=== PATIENT | male | born 1985 | race Hispanic/Latino ===

== ENCOUNTER 2017-06-28 09:45 | Inpatient (IN) | payer SELFPAY ==
[2017-06-28] MEDS ORDERED: HYDROmorphone 0.5 MG/0.5 ML SYRINGE ONE ×2 (09:53→10:06)
[2017-06-28 10:02] LABS: #Basophils 0.1 thou/uL (0.0-0.2); #Eosinphils 0.1 thou/uL (0.0-0.7); #Lymphocytes 3.6 thou/uL (1.20-3.40); #Monocytes 0.9 thou/uL (0.11-0.59); #Neutrophils 6.7 thou/uL (1.40-6.50); %Basophils 0.9 % (0.0-1.0); %Eosinophils 0.5 % (0.0-10.0); %Lymphocytes 31.4 % (21.0-51.0); %Monocytes 7.9 % (0.0-10.0); %Neutrophils 59.3 % (42.0-75.0); Hemoglobin 16.3 g/dL (14.0-18.0); Mean Corpuscular HGB CONC 33.7 g/dL (32.0-36.0); Mean Corpuscular Hemoglobin 29.7 pg (27.0-31.0); Mean Corpuscular Volume 88.2 fl (80.0-94.0); Platelet Count 377 thou/uL (130-400); RBC Distribution Width 11.9 % (11.5-14.5); Red Blood Cell (RBC) Count 5.47 mill/uL (4.70-6.10); White Blood Cell (WBC) Count 11.3 thou/uL (4.8-10.8)
[2017-06-28 10:10] LABS: Prothrombin Time 13.6 SEC (12.0-14.7)
[2017-06-28 10:11] LABS: PTT 22.8 SEC (22.9-36.1)
[2017-06-28 10:26] LABS: ALT (SGPT) 28 U/L (8-55); AST (SGOT) 36 U/L (5-34); Albumin 4.8 g/dL (3.5-5.0); Alkaline Phosphatase 69 U/L (40-150); Anion Gap 17 mmol/L (10-20); BUN (Urea Nitrogen) 19 mg/dL (8.9-20.6); Bilirubin, Total 0.9 mg/dL (0.2-1.2); Calc. Creatinine Clearance 0 mL/min (70-130); Calcium 9.8 mg/dL (7.8-10.44); Carbon Dioxide 19 mmol/L (22-29); Chloride 103 mmol/L (98-107); Estimated GFR-MDRD 84; Glucose 138 mg/dL (70-105); Lipase 19 U/L (8-78); Potassium 3.6 mmol/L (3.5-5.1); Protein, Total 7.8 g/dL (6.0-8.3); Sodium 135 mmol/L (136-145)
--- NOTE | 2017-06-28 10:46 | CT ---
CT CERVICAL SPINE NONCONTRAST: HISTORY: 32-year-old male status acute cervical trauma from fall from roof, 10 feet. FINDINGS: There are no jumped or perched facets. There is no evidence of acute fracture. The vertebral body h eights are maintained. There is no prevertebral soft tissue swelling. IMPRESSION: No evidence of acute fracture or acute traumatic subluxation. mirna POS: [facility]
--- NOTE | 2017-06-28 10:48 | CT ---
NONCONTRAST HEAD CT: History: Patient fell off a roof from the height of 10 feet. Post-traumatic pain. Comparison: None. Technique: A noncontrast head CT is performed from skull base to skull vertex. FINDINGS: No parenchymal hemorrhage. No extraaxial hematoma. No midline shift. Basilar cisterns are patent. Brain volume is age appropriate. Cortical cobb white matter differentiation is preserved. Ventricles and sulci are patent and symmetric. There appears to be chronic thinning or chronic change of the right temporal bone. No acute fractures . Adequate aeration of the sinuses and mastoid air cells. IMPRESSION: No acute intracranial process. Chronic change along the right temporal bone. Chronic thinning versus post-surgical change in the right temporal bone. POS: [facility]
--- NOTE | 2017-06-28 11:14 | CT ---
CT THORAX WITH CONTRAST CT ABDOMEN WITH CONTRAST CT PELVIS WITH CONTRAST: (trauma protocol) HISTORY: 32-year-old male status post acute thoracic, abdominal, and pelvic trauma due to fall of [address] Gomes reported the findings of the CTs of the brain, cervical spine, chest, abdomen, and pelvis to Dr. Cash of the Emergency Department at 10:35 a.m. on 06-28-17, for this level II trauma case. TECHNIQUE: IV administration of iodinated contrast media. No oral contrast media. Single phase scans of thorax, abdomen, and pelvis. Sagittal reconstructions of thoracic and lumbar spine. FINDINGS: Thoracic and lumbar spine: No compression fracture. Thorax: Breathing motion artifact makes it difficult to evaluate for sternal fracture. Lungs are clear. No pl eural effusion or pneumothorax. No thoracic aortic dissection, rupture, or aneurysm. No mediastinal h ematoma or lymphadenopathy. No grossly displaced rib fracture identified. No grossly displaced clavic ular or scapular fracture identified. Abdomen: No evidence of acute injury to the abdominal aorta, bilateral kidneys, pancreas, adrenals, spleen, or liver. Images are degraded by patient breathing motion artifact. No free fluid identified. No retrop eritoneal hematoma. No small bowel dilation. No gross acute findings of the colon. Pelvis: No free fluid within the pelvic cavity. Normal appendix. There is no fracture or dislocation of the p lan. However, there is a significantly displaced comminuted fracture of the right proximal femoral diaphysis, incompletely imaged, involving subtrochanteric and intertrochanteric regions. IMPRESSION: 1. Significantly displaced, acute, traumatic, comminuted, closed fracture of intertrochanteric a nd subtrochanteric right femur. 2. No evidence of acute injury within the thoracic, abdominal, or pelvic cavities. NICCI Mix POS: [facility]
--- NOTE | 2017-06-28 11:16 | RAD ---
RADIOGRAPH RIGHT FEMUR 2 VIEWS: Date: 06/28/17 Time: 1034 hours HISTORY: 32-year-old male status post acute trauma to the right femur due to 10-ft fall from roof. FINDINGS: There is a comminuted fracture of the proximal femur beginning at the intertrochanteric region, and e xtending to involve the subtrochanteric, proximal femoral diaphysis. There is comminution. The main d istal fragment (the majority of the femoral diaphysis) is significantly rotated laterally (counterclo ckwise from an inferior to superior viewpoint) relative to the main proximal fragment. The main dista l fragment is also significantly displaced anteriorly and angulated medially relative to the proximal fragment (lateral angulation of fracture apex). There is overlap of fracture fragments. The mid and distal portions of the femoral diaphysis, and the femoral condyles, appear to be intact. IMPRESSION: Acute, traumatic, comminuted, closed, displaced, and angulated fracture of the right proximal femur i nvolving intertrochanteric region and proximal shaft. POS: [facility]
[2017-06-28 11:26] LABS: Bilirubin Negative (Negative); Blood, Urine Negative (Negative); Clarity CLEAR (Clear); Glucose, Urine (Dipstick) Negative (Negative); Leukocyte Negative (Negative); Nitrite Negative (Negative); Protein, Urine (Dipstick) Negative (Neg-Trace); Urobilinogen 0.2 mg/dL (0.2-1.0)
[2017-06-28 11:33] LABS: Specific Gravity, Urine 1.053 (1.002-1.036)
--- NOTE | 2017-06-28 11:37 | RAD ---
TWO VIEWS RIGHT ELBOW: History: Trauma. Pain. Comparison: None. FINDINGS: No fracture. No cortical irregularity of periosteal reaction. No malalignment. No joint effusion. IMPRESSION: No fracture. POS: [facility]
[2017-06-28] MEDS ORDERED: Ketorolac Tromethamine 30 MG/ML VIAL ONE ×2 (11:55→18:47)
[2017-06-28] MEDS ORDERED: diphenhydrAMINE 50 MG/ML VIAL IVP PRN (12:17)
[2017-06-28] MEDS ORDERED: Naloxone HCl 0.4 mg/ml Vial IV PRN (12:17)
[2017-06-28] MEDS ORDERED: Zolpidem Tartrate 5 MG TAB PO PRN (12:17)
[2017-06-28] MEDS ORDERED: Dextrose 5% in Water 1,000 ML IV PRN (12:17)
[2017-06-28] MEDS ORDERED: Dextrose 50% Abboject 50 ML SYRINGE SLOW IVP PRN (12:17)
[2017-06-28] MEDS ORDERED: HYDROmorphone 10 mg/100 ml CADD IVPB PRN (12:17)
[2017-06-28] MEDS ORDERED: diphenhydrAMINE 50 MG/ML VIAL IM PRN (12:17)
[2017-06-28] MEDS ORDERED: diphenhydrAMINE 25 MG CAP PO PRN (12:17)
[2017-06-28] MEDS ORDERED: Ondansetron HCl/PF 4 MG/2 ML Vial IVP PRN ×2 (12:17→18:45)
[2017-06-28] MEDS ORDERED: Promethazine HCl 25 MG/ML VIAL IM PRN (12:17)
[2017-06-28] MEDS ORDERED: Communication Order-Pharmacy FS SCH (12:30)
[2017-06-28] MEDS ORDERED: Fentanyl 100 MCG/2 ML VIAL ONE ×5 (12:43→19:20)
[2017-06-28] MEDS ORDERED: Dexamethasone 20 MG/5 ML VIAL ONE (12:47)
[2017-06-28] MEDS ORDERED: Glycopyrrolate 0.2 MG/ML 5 ML SYRINGE ONE (12:47)
[2017-06-28] MEDS ORDERED: PROPOFOL 200 MG/20 ML VIAL ONE (12:47)
[2017-06-28] MEDS ORDERED: Lidocaine 1% PF 5 ML VIAL ONE (12:47)
[2017-06-28] MEDS ORDERED: PHENYLEPHRINE-NS 100 MCG/ML 10 ML SYRINGE ONE (12:47)
[2017-06-28] MEDS ORDERED: Ondansetron HCl/PF 4 MG/2 ML Vial ONE (12:47)
--- NOTE | 2017-06-28 13:10 | RAD ---
RIGHT KNEE TWO VIEWS: Date: 06-28-17 Comparison: None. History: Trauma, pain. FINDINGS: Lateral imaging is slightly limited secondary to rotation. No large knee joint effusion. No displaced fracture or dislocation. If symptoms persist, a full four view examination with a proper lateral exa m is advised. IMPRESSION: No obvious fracture or dislocation. Please see above discussion. POS: [facility]
--- NOTE | 2017-06-28 13:13 | RAD ---
RADIOGRAPH RIGHT ELBOW FOUR VIEWS: History: 72-year-old male status post-traumatic injury to the right elbow due to 10 foot fall from roof. FINDINGS: There is no fracture or dislocation. IMPRESSION: Negative. POS: [facility]
--- NOTE | 2017-06-28 13:15 | RAD ---
TWO VIEWS RIGHT ANKLE: FINDINGS: AP and lateral views of the right ankles demonstrate an area of radiolucency in the medial malleolus. There are no adjacent areas of soft tissue swelling. This may represent unhealed fracture of indeter minate age. If there is acute pain, this may be more acute or may have represented older fracture whi ch is unhealed. Correlate with clinical exam. IMPRESSION: Medial malleolar fracture, indeterminate age. POS: [facility]
--- NOTE | 2017-06-28 13:17 | RAD ---
TWO VIEWS RIGHT FOOT: History: Trauma. Right foot pain. FINDINGS: AP and lateral views obtained and demonstrate the right foot to be unremarkable. No evidence of right foot fractures, subluxations, or bony lesions seen. IMPRESSION: Normal two views right foot. POS: [facility]
[2017-06-28] MEDS ORDERED: ISOVUE-370 76%-LOCM 1 ML ONE (13:57)
--- NOTE | 2017-06-28 15:28 | CT ---
CT RIGHT ANKLE NONCONTRAST: Date: 06/28/17 HISTORY: 32-year-old male status post acute traumatic injury to right ankle due to 10-ft fall from roof. FINDINGS: There is a comminuted, acute fracture of the medial malleolus involving its superior, mid, and distal portions. There is very mild and minimal displacement of the various fracture fragments. The fractur e fragments extend to the medial aspect of the ankle mortise joint space, without a significant step- off at that joint space. There is a comminuted fracture with minimal displacement involving the anterior and anteromedial aspe ct of the tibial plafond, mostly distal tibial epiphysis, with involvement of the anterior aspect of the tibiotalar joint space. The anterior aspect of the tibiotalar joint space is widened, and this ap pears to be an impaction fracture. The talar dome is intact. The lateral malleolus is intact. The rené caneus is intact. Ankle mortise is symmetrical. No subluxation of the subtalar joints. IMPRESSION: 1. Acute, traumatic, comminuted, minimally/mildly displaced medial malleolar fracature. 2. Acute, traumatic, mildly displaced, impacted fracture of the anterior aspect of the tibial plafon d, with resultant mild widening of the anterior aspect of the tibiotalar joint space. POS: [facility]
--- NOTE | 2017-06-28 15:42 | CON ---
DATE OF CONSULTATION: 06/28/2017 REQUESTING PHYSICIAN: Dr. Aguila Johnson. CONSULTING PHYSICIAN: Dr. Moustapha Galo. REASON FOR CONSULTATION: Right hip, knee, ankle and elbow pain. BRIEF CLINICAL HISTORY: Mikel is a 32-year-old male who fell approximately 10 foot today l anding on his right side. Onset of pain was immediate and he was brought via EMS to [facility] where he was admitted to the Trauma Service. Survey radiographs demonstrated a sub trochanteric reverse oblique right femur fracture and granulator films also delineate what appears to be a tibial plateau fracture. He is in the process of receiving other x-rays for the elbow and the ankle and foot, which are pending at this time of this dictation. Pain is constant. He has been evaluate d by the trauma service. CT of abdomen, belly, and cervical spine has been obtained and he has been cleared for surgical intervention today. His last meal was at 7 this morning in the form of a cup of coffee. PAST MEDICAL HISTORY: Negative. PAST SURGICAL HISTORY: I believe he had a foot surgery some time ago secondary to a fall. MEDICATIONS: None. ALLERGIES: No known drug allergies. Denies any contact allergies. SOCIAL HISTORY: His is at the bedside. He denies any tobacco use and social ethanol consumptio n and denies illicit drug abuse. 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 PHYSICAL EXAMINATION: Visual inspection of the right lower extremity demonstrates him to indeed have a +2 effusion over the right knee. Right ankle is also gradually swelling with lateral malleolus be coming more prominent. He has tenderness at the ankle at the knee joint line medially and laterally. Range of motion of the hip is not assessed due to known underlying subtrochanteric fracture. He is neurovascularly intact in the right lower extremity. Pelvic compression is negative. He has pain i n the right elbow with flexion, extension, supination, and pronation. Tenderness is also elicited fr om distal radial styloid. He is neurovascularly intact in both upper and lower extremities. He has dorsiflexion, inversion, eversion, and also has full digital excursion and sensation. IMPRESSION: 1. Right subtrochanteric reverse oblique femur fracture. 2. Right tibial plateau fracture with hemarthrosis clinically. 3. Pending definitive x-ray diagnosis presumptive fracture of right ankle. 4. Right elbow pain. Pending repeat radiographs either collateral injury or occult fracture at the capitellum. PLAN: 1. The risks, benefits, options, alternatives, and rationale for proceeding with open reduction inte rnal fixation of the right hip, tibial plateau, and possibly the ankle has been explained in great de tail to the patient. He is ready to proceed. All questions were answered. No guarantee of outcome stated or implied. 2. Please see orders.
[2017-06-28] MEDS ORDERED: Midazolam HCl 2 mg/2 ml Vial ONE (16:04)
[2017-06-28] MEDS ORDERED: CEFAZOLIN/Water 2 GM/20 ML SYRINGE ONE (16:15)
--- NOTE | 2017-06-28 16:33 | HP ---
REQUESTING PHYSICIAN: Dr. Traylor. ADMITTING PHYSICIAN: Dr. Johnson. CONSULTING PHYSICIAN: Dr. Galo, Orthopedic. 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 He denies any LOC. He reports that there was immediate pain in his right leg and foot. He was unable to get off the ground himself. EMS was summoned and he was transported to the hospital as a level 2 trauma activation. He complained of pain in the right hip and thigh and right ankle and foot. He denied pain in any other areas. He described pain as being sharp. Pain is exacerbated by movement. The pain is relieved minimally with narcotic analgesia. Trauma Services has been consulted for admission and management. Dr. Galo, Orthopedics, has been consulted for fractures. PAST MEDICAL HISTORY: The patient denies any past medical history. PAST SURGICAL HISTORY: Left foot orthopedic surgery due to falling on ice, unsure of year. SOCIAL HISTORY: Patient lives at home with . He denies smoking or drug use. He endorses occasional alcohol use. FAMILY HISTORY: No relevant family medical history. MEDICATIONS: None. LABORATORY STUDIES: CBC: WBC 11.3, RBC 5.47, hemoglobin 16.3, hematocrit, platelets 377. Chemistry: Sodium 135, potassium 3.6, chloride 103, carbon dioxide 19, BUN 19, creatinine 1.02 and glucose 138. DIAGNOSTIC IMAGING: Impression, CT cervical spine, no evidence of acute fracture. CT chest, abdomen and pelvis, negative for traumatic injury. CT brain, no acute intracranial process. Right femur x-ray, right proximal femur fracture. Right elbow, no fracture. Right foot, no fracture. Right ankle medial malleolar fracture, indeterminate age. Right knee x-ray, no acute fracture. Right elbow x-ray, no acute fracture. REVIEW OF SYSTEMS: Constitutional: Negative for recent weight loss, chills or fever. HEENT: Negative. No injury reported, no pain. Cardiovascular: No chest pain, no palpitations. Respiratory: No shortness of breath, no cough. Gastrointestinal: No abdominal pain, no constipation, no diarrhea, no nausea, no vomiting. Genitourinary: No complaints of dysuria or hematuria. Musculoskeletal: The patient reports injury to the right thigh. He reports pain in the right thigh, right ankle and right foot. Skin: No reports of pain , rashes or skin changes. Neurologic: Denies LOC. Denies headache. Denies focal weakness. PHYSICAL EXAMINATION: GENERAL: Well-developed, well-nourished male lying on the bed. Nontoxic appearing. Appears to be in pain. HEENT: Atraumatic and normocephalic. No drainage noted from ears or nose. NECK: No JVD. No cervical spine tenderness. PULMONARY: Respirations even and unlabored. No respiratory distress. CARDIOVASCULAR: Regular rate and rhythm. ABDOMEN: Soft, nontender and nondistended. No masses. No guarding. EXTREMITIES: Bilateral upper extremities with no trauma noted. Neurovascularly intact. Cap refill brisk. Pulses 2+. Left lower extremity without evidence of trauma. Neurovascularly intact. Cap refill brisk. Pulses 2+. Right lower extremity; right leg with obvious deformity at the upper thigh and externally rotated. Neurovascularly intact. Pain to palpation of right ankle and right foot. Pulses 2+. Cap refill brisk. NEUROLOGIC: GCS is 15. Awake, alert and oriented. SKIN: No external signs of trauma. No rash. Normal color. Warm and dry. ASSESSMENT: 1. Status post fall from an 8 feet roof. 2. Right proximal femur fracture. 3. Right medial malleolar fracture. 4. Acute traumatic pain. PLAN: 1. Admission to the hospital by Trauma Service. 2. Consult to Dr. Galo, Orthopedics. 3. N.p.o., IV fluids until recommendations received from ortho. 4. [employer] for analgesia. 5. Sequential compression devices for deep venous thrombosis prophylaxis until cleared by Orthopedic Surgery for chemical deep venous thrombosis prophylaxis. 6. PT, OT evaluation with orthopedic restrictions. 7. Pepcid for peptic ulcer disease prophylaxis. The patient was seen and examined with Dr. Johnson, attending trauma surgeon, who agrees with the assessment and plan. [facility]
[2017-06-28] MEDS ORDERED: MORPHINE 10 MG/ML SYRINGE SLOW IVP PRN (18:07)
[2017-06-28] MEDS ORDERED: HYDROcodone/Acetaminophen 10/325 mg Tablet PO PRN ×2 (18:08)
[2017-06-28] MEDS ORDERED: traMADol HCl 50 MG TAB PO PRN ×3 (18:09→18:21)
[2017-06-28] MEDS ORDERED: Acetaminophen 325 MG TAB PO PRN (18:09)
[2017-06-28] MEDS ORDERED: Meperidine HCl/PF 25 MG/ML VIAL SLOW IVP PRN (18:45)
[2017-06-28] MEDS ORDERED: HYDROmorphone 2 MG/ML VIAL SLOW IVP PRN (18:45)
[2017-06-28] MEDS ORDERED: Morphine Sulfate 2 MG/ML SYRINGE SLOW IVP PRN (18:45)
[2017-06-28] MEDS ORDERED: Promethazine HCl 25 MG/ML VIAL SLOW IVP PRN (18:45)
--- NOTE | 2017-06-28 19:57 | RAD ---
RIGHT HIP RADIOGRAPHS TWO VIEWS 06/28/17 PROVIDED CLINICAL HISTORY: Postop. FINDINGS: Two spot fluoroscopic intraoperative views of the right femur submitted and compared to 06/28/17. Inte rval antegrade intramedullary femoral nail with associated interlocking proximal and distal screws tr orlin previously described right proximal femoral fracture with improved alignment. IMPRESSION: As above. POS: [facility]
[2017-06-28 20:15] VITALS: BMI 29.9
[2017-06-28] MEDS: Ketorolac Tromethamine 30 MG/ML VIAL IVP SCH ×2 (20:56→23:40)
[2017-06-28] MEDS: Sodium Chloride 0.9% 1,000 ML IV SCH ×2 (20:56→21:01)
[2017-06-28] MEDS ORDERED: Famotidine/PF 20 mg/2ml Vial SLOW IVP SCH (21:00)
--- NOTE | 2017-06-28 21:11 | RAD ---
RIGHT ANKLE RADIOGRAPHS TWO VIEWS 06/28/17 PROVIDED CLINICAL HISTORY: ORIF. FINDINGS: Two spot fluoroscopic views of the right ankle are submitted, and demonstrate postoperative changes o f screw fixation of previously described fractures involving the distal tibia. IMPRESSION: As above. POS: [facility]
[2017-06-28] MEDS: Famotidine 20 MG TAB PO SCH (21:25)
--- NOTE | 2017-06-28 21:49 | OP ---
DATE OF PROCEDURE: 06/28/2017 OPERATIONS PERFORMED: 1. Intramedullary nail of right femur subtrochanteric fracture. 2. Open reduction and internal fixation of right distal tibial plafond fracture. PREOPERATIVE DIAGNOSES: Right subtrochanteric femur fracture and right distal tibial plafond fractur e. POSTOPERATIVE DIAGNOSES: Right subtrochanteric femur fracture and right distal tibial plafond fractu re. COMPLICATIONS: None. ESTIMATED BLOOD LOSS: 400 mL. SURGEON: Moustapha Galo M.D. FINISHER ACCORDION: Jacek Liang PA-C IMPLANTS: Synthes trochanteric nail, 9 x 400 mm and small fragment screws 3.5 mm were used on the an kle. INDICATIONS: Mr. Hernández is a 32-year-old male who fell from a roof today. He landed primarily on hi s right leg. He sustained a fracture of the femur as well as the distal tibial plafond. He was nathalie cated for the above procedures to restore anatomic alignment and promote healing. Risks have been re viewed in detail. He has elected to proceed with the operation. DESCRIPTION OF OPERATION: Mr. Hernández was identified in the preoperative holding area. His correct e xtremity was marked. He was carried to the operating room. He was positioned supine on the fracture table. At this point, we prepped and draped the right lower extremity. We used intraoperative x-ra y to reduce the subtrochanteric femur fracture. We then made a small incision proximally. We insert ed a guidewire and over reamed the guidewire. We then placed a ball-tip guidewire from proximal to d istal. We then reamed this to a size 10.5 mm. At this point, we impacted a 9 mm nail. We placed a screw in the center-center position of the femoral head. We then placed a distal cross lock screw us ing perfect [place] technique after removing the traction. We took final x-ray images in orthogonal p lanes. We then thoroughly irrigated our wounds and closed with a 0 Vicryl suture, 2-0 Vicryl suture and angel for the skin were used. A sterile dressing was applied. At this point, we prepped and draped the lower aspect of the right lower extremity. We inflated a st erile tourniquet. We then began fixation of his ankle. We made a small approach to the medial malle olus dissecting down through the subcutaneous tissue to the bony level. We identified the fracture o n interoperative x-ray. Once we had a good reduction, we placed a 4.0 partially threaded cancellous screws across the fracture compressing our fracture lines. This was guided with intraoperative x-ray . At this point, we made a small incision over the anterior lateral ankle. We dissected down through t he subcutaneous tissues to the bony level. We entered a fracture plane with a hemostat and then kept the articular surface back down into its anatomic position over the anterior lateral aspect of the t ibia. Again, this was guided with intraoperative x-ray. Once we had an anatomic reduction, we then placed a screw from anterior to posterior using a rafting technique to hold our impacted segment back into its position. Again, we took x-ray images. We thoroughly irrigated the wounds and closed with 2-0 Vicryl suture followed by nylon and angel. A sterile dressing was applied and a splint. The patient was taken to the recovery room in good condition without complication.
--- NOTE | 2017-06-28 23:38 | PRG ---
DATE OF SERVICE: 06/28/2017 SUBJECTIVE: This is a 32-year-old male, who was at work on a roof, approximately 8 feet high, when h e fell, landing on his right side. Denied any LOC. He has a hip fracture. He is postop day 0 for h is ORIF right hip, ORIF right ankle as well. OBJECTIVE: Vital signs at this time are stable. Patient is resting comfortably in bed, the pa tient is complaining of some pain/soreness to his right side of his abdomen. On physical examination , he did have some tenderness at right upper quadrant. PLAN: Plan will be continue with plan of current H and P. Continue to monitor. Continue with pain control, reasses in the a.m., begin PT/OT service as well.
[2017-06-28] MEDS: CEFAZOLIN/Water 2 GM/20 ML SYRINGE SLOW IVP SCH (23:40)
[2017-06-29] MEDS: Ketorolac Tromethamine 30 MG/ML VIAL IVP SCH ×2 (05:34→18:28)
[2017-06-29] MEDS: Sodium Chloride 0.9% 1,000 ML IV SCH ×2 (05:36→23:50)
[2017-06-29 06:00] LABS: Anion Gap 12 mmol/L (10-20); BUN (Urea Nitrogen) 17 mg/dL (8.9-20.6); Calc. Creatinine Clearance 147 mL/min (70-130); Calcium 8.1 mg/dL (7.8-10.44); Carbon Dioxide 24 mmol/L (22-29); Chloride 106 mmol/L (98-107); Estimated GFR-MDRD Greater than 90; Glucose 134 mg/dL (70-105); Sodium 138 mmol/L (136-145)
[2017-06-29 06:03] LABS: #Lymphocytes 1.2 thou/uL (1.20-3.40); #Monocytes 1.1 thou/uL (0.11-0.59); #Neutrophils 10.3 thou/uL (1.40-6.50); %Basophils 0.2 % (0.0-1.0); %Lymphocytes 9.4 % (21.0-51.0); %Monocytes 8.7 % (0.0-10.0); %Neutrophils 81.6 % (42.0-75.0); Hemoglobin 11.2 g/dL (14.0-18.0); Mean Corpuscular HGB CONC 32.6 g/dL (32.0-36.0); Mean Corpuscular Hemoglobin 29.2 pg (27.0-31.0); Mean Corpuscular Volume 89.6 fl (80.0-94.0); Mean Platelet Volume 7.2 fL (7.4-10.4); Platelet Count 268 thou/uL (130-400); RBC Distribution Width 11.8 % (11.5-14.5); Red Blood Cell (RBC) Count 3.83 mill/uL (4.70-6.10); White Blood Cell (WBC) Count 12.7 thou/uL (4.8-10.8)
[2017-06-29] MEDS ORDERED: FLU VACC QS2017-18 36 mo. & older 0.5 ML SYRINGE IM ONE (09:00)
[2017-06-29] MEDS: CEFAZOLIN/Water 2 GM/20 ML SYRINGE SLOW IVP SCH (09:51)
[2017-06-29] MEDS: Famotidine 20 MG TAB PO SCH ×2 (09:51→20:25)
[2017-06-29] MEDS: Enoxaparin Sodium 40 MG/0.4 ML SYRINGE SC SCH (09:51)
[2017-06-29] MEDS ORDERED: HYDROmorphone 10 mg/100 ml CADD IVPB PRN (12:04)
[2017-06-29] MEDS ORDERED: Acetaminophen 325 MG TAB PO SCH (12:04)
--- NOTE | 2017-06-29 12:16 | PRG ---
DATE OF SERVICE: 06/29/2017 SUBJECTIVE: I am seeing Mr. Hernández, using a upper marker. The patient is postoperative day # 1, status post intramedullary nail of right femur subtrochanteric fracture and open reduction interna l fixation of right distal tibia fracture. The patient reports adequate pain control. He is tolerat ing oral intake, having good urinary output. OBJECTIVE: VITAL SIGNS: Today includes blood pressure 103/57, pulse is 97, and respiratory rate is 16, maximum temperature on the last 24 hours is 98.4 degrees Fahrenheit, and oxygen saturation is 95% on room air . HEENT: Reveals pupils equally round, reactive to light and accommodation. No scleral icterus presen t. HEART: Reveals regular rate and rhythm, no murmurs, or gallops auscultated. LUNGS: Clear to auscultation bilaterally. Breathing is regular and unlabored. ABDOMEN: Soft, nontender, nondistended. EXTREMITIES: Reveals 2+ radial and pedal pulses bilaterally. No ankle edema is present. NEUROLOGIC: Reveals no focal deficits present. PERTINENT LABORATORY FINDINGS: Includes a CBC with 12,700 white blood cells, hemoglobin and hematocr it stable at 11.2 and 34.3 respectively. Platelet count is 268,000. Metabolic profile: Sodium 138, potassium is 4.0, chloride is 106, bicarbonate is 24, BUN 17, creatin ine 0.87, and glucose is 134. IMPRESSION: Postoperative day #1, status post open reduction and internal fixation of right distal t ibia fracture and intramedullary nailing of right femur fracture. The patient is hemodynamically sta ble. PLAN: 1. Discontinue Campbell catheter. 2. Initiate physical and occupational therapy. 3. Advance diet as tolerated. 4. We will transition patient to oral analgesics accordingly.
[2017-06-29] MEDS ORDERED: Acetaminophen 500 MG TAB PO SCH (13:30)
[2017-06-29] MEDS: traMADol HCl 50 MG TAB PO SCH ×2 (13:36→18:35)
[2017-06-29] MEDS: Ibuprofen 800 MG TAB PO SCH ×2 (13:37→20:25)
--- NOTE | 2017-06-29 14:53 | RAD ---
RIGHT WRIST THREE VIEWS: History: Fall, right wrist injury. FINDINGS: Scaphoid waste is intact. No acute fracture or dislocation are apparent. IMPRESSION: No acute osseous abnormalities are demonstrated. POS: [facility]
--- NOTE | 2017-06-29 15:27 | RAD ---
THREE VIEWS RIGHT WRIST: History: Fall, trauma, pain. Comparison: None. FINDINGS: Three views of the right wrist are submitted for interpretation. Exam was performed on 06-28-17. The e xam is on the taken list and submitted for interpretation on 06-29-17 at 3:06 p.m. No fracture. No cortical irregularity. No periosteal reaction. IMPRESSION: No fracture. POS: [facility]
[2017-06-29] MEDS: Artificial Tears 18 DROP/0.9 ML EA EYE SCH ×2 (18:27→20:25)
[2017-06-29] MEDS: Acetaminophen 500 MG TAB PO SCH ×2 (18:35→23:51)
[2017-06-30] MEDS: traMADol HCl 50 MG TAB PO SCH ×4 (04:12→17:22)
[2017-06-30] MEDS: Acetaminophen 500 MG TAB PO SCH ×3 (05:22→17:20)
[2017-06-30] MEDS: Ibuprofen 800 MG TAB PO SCH ×3 (05:22→22:01)
[2017-06-30] MEDS: Sodium Chloride 0.9% 1,000 ML IV SCH ×4 (06:25→18:32)
--- NOTE | 2017-06-30 06:31 | PRG ---
DATE OF SERVICE: 06/29/2017 SUBJECTIVE: This is a 32-year-old male Yoruba speaking predominantly using a finisher accordion. Patient is postoperative day #1, status post IM nailing of right femur, ORIF of right distal tibia fr acture. Pain is controlled. Tolerating oral intake and good urine output. OBJECTIVE: VITAL SIGNS: Stable and reviewed. Physical examination is unremarkable from previous exam. ASSESSMENT AND PLAN: Continue with current plan as documented in daily progress note. Continue to m onitor. Continue per care plan.
[2017-06-30 07:48] LABS: Hemoglobin 9.4 g/dL (14.0-18.0); Mean Corpuscular HGB CONC 34.6 g/dL (32.0-36.0); Mean Corpuscular Hemoglobin 31.5 pg (27.0-31.0); Platelet Count 212 thou/uL (130-400); RBC Distribution Width 11.9 % (11.5-14.5); Red Blood Cell (RBC) Count 2.98 mill/uL (4.70-6.10); White Blood Cell (WBC) Count 7.8 thou/uL (4.8-10.8)
[2017-06-30 08:20] LABS: Band 1 % (5-11); Eosinophils 1 % (0-10); Lymphocytes 13 % (21-51); MDiff Complete? YES; Monocytes 6 % (0-10); Neutrophil 77 % (42-75); RBC Morphology Normal; Reactive Lymphocytes 2 % (0-10)
[2017-06-30] MEDS: Famotidine 20 MG TAB PO SCH ×2 (10:04→22:03)
[2017-06-30] MEDS: Artificial Tears 18 DROP/0.9 ML EA EYE SCH ×2 (10:04→22:20)
[2017-06-30] MEDS: Enoxaparin Sodium 40 MG/0.4 ML SYRINGE SC SCH (10:04)
[2017-06-30] MEDS ORDERED: HYDROcodone/Acetaminophen 10/325 mg Tablet PO PRN ×2 (14:45)
[2017-06-30] MEDS ORDERED: Gabapentin 300 MG CAP PO SCH (15:00)
[2017-06-30] MEDS: Gabapentin 100 MG CAP PO SCH ×2 (15:20→22:01)
--- NOTE | 2017-06-30 18:30 | PRG ---
DATE OF SERVICE: 06/30/2017 ATTENDING PHYSICIAN: Dr. Johnson. SUBJECTIVE: A 32-year-old male who is postoperative day #2, status post ORIF of right femur fracture and right distal tibial fracture. He has been stable on the surgical floor. 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 He has been working with physical therapy. He reports pain is well controlled. PHYSICAL EXAMINATION: VITAL SIGNS: Temperature 97.5, pulse 95, respirations 16, O2 sat 94% on room air, and blood pressure 110/70. GENERAL: Well-developed, well-nourished male, in no acute distress. RESPIRATORY: Bilateral breath sounds clear to auscultation. No respiratory distress. CARDIOVASCULAR: Regular rate and rhythm. Heart sounds normal. ABDOMEN: Soft, nontender, nondistended. EXTREMITIES: Right lower extremity with dressing intact. Right lateral hip and splint intact right foot and leg. Cap refill brisk. Neurovascularly intact. All other extremities, atraumatic. ASSESSMENT: 1. 32-year-old male status post fall from roof. 2. Right subtrochanteric femur fracture. 3. Right distal tibial fracture. 4. Status post open reduction and internal fixation of fractures. PLAN: 1. Continue oral analgesia. Discontinue all IV analgesia. 2. Continue PT, OT evaluation on surgical floor. 3. Discussed with Orthopedics. Patient anticipate to be discharged in a.m. 4. Lovenox for DVT prophylaxis. The patient was seen and examined with Dr. Johnson, attending trauma surgeon, who agrees with the assessment and plan. [facility]
[2017-07-01] MEDS: Sodium Chloride 0.9% 1,000 ML IV SCH ×2 (00:24→11:33)
[2017-07-01] MEDS: traMADol HCl 50 MG TAB PO SCH ×3 (00:25→11:37)
[2017-07-01] MEDS: Acetaminophen 500 MG TAB PO SCH ×4 (00:25→11:36)
--- NOTE | 2017-07-01 00:59 | PRG ---
DATE OF SERVICE: 06/30/2017 SUBJECTIVE: This is a 32-year-old [place]an-speaking male, postoperative day #2 from IM nailing of rig ht femur, ORIF of right distal tibia fracture. Pain is controlled. OBJECTIVE: VITAL SIGNS: Stable and reviewed. Physical exam stable from previous exam. ASSESSMENT AND PLAN: Continue current plan as documented in daily progress note. Continue to monito r. Discharge pending, possibly for tomorrow.
[2017-07-01] MEDS: Ibuprofen 800 MG TAB PO SCH ×2 (05:32→11:36)
[2017-07-01] MEDS: Enoxaparin Sodium 40 MG/0.4 ML SYRINGE SC SCH (09:19)
[2017-07-01] MEDS: Famotidine 20 MG TAB PO SCH (09:19)
[2017-07-01] MEDS: Gabapentin 100 MG CAP PO SCH ×2 (09:19→14:32)
[2017-07-01] MEDS: Artificial Tears 18 DROP/0.9 ML EA EYE SCH (09:20)
[2017-07-01 11:55] VITALS: TEMP 98.3
[2017-07-01 15:55] VITALS: BP 113/73
--- NOTE | 2017-07-01 23:32 | DIS ---
DATE OF ADMISSION: 06/28/2017 DATE OF DISCHARGE: 07/01/2017 ADMITTING PHYSICIAN: Dr. Aguila Johnson. DISCHARGING PHYSICIAN: Dr. Aguila Johnson. CONSULTING PHYSICIAN: Dr. Moustapha Galo, Orthopedics REASON FOR HOSPITALIZATION: Fall from height, fall off roof with a right hip and foot pain. HOSPITAL DIAGNOSES: 1. Right subtrochanteric femur fracture. 2. Right distal tibia fracture. PROCEDURES PERFORMED: 1. IM nail, right femur subtrochanteric fracture. 2. Open reduction internal fixation of right distal tibial plafond fracture. DATE OF PROCEDURE: 06/28/2017. OPERATING SURGEON: Dr. Moustapha Galo. CONDITION ON DISCHARGE: Good. DISPOSITION: Discharged to home. BRIEF HISTORY OF HOSPITALIZATION: Patient is a 32-year-old male who was working on a roof approximately 8 feet off the ground when he fell, landing on his right side. He was transported to [facility]. A right subtrochanteric femur fracture and right distal tibia fracture were identified. He was admitted to the hospital by Trauma Services. He was taken to the operating room for fixation of fractures by Orthopedics. He was then managed on the surgical floor. He was transitioned from IV TIN CUTTER pain medicine to strictly oral pain medication. He mobilized with physical and occupational therapy. He had no postoperative complications. Case management was consulted for discharge planning and securing DME for the patient. On 07/01/2017, he was cleared for discharge by Orthopedic and Trauma Services. He was discharged to home with his . He is to follow up with Dr. Galo. There is no need for him to follow up with Trauma Services. He was discharged with a prescription for [place]. He will not require any outpatient therapy. He has been instructed on splint care. He was given discharge instructions and followup information via php web developer line. The patient was seen and examined with Dr. Johnson who agrees with the assessment and plan for discharge. JANIA
== END 2017-07-01 18:30 | disposition home or self-care (01) | DRG 482 ==
LOC: ERS 09:45 → SURG A 11:28
PROVIDERS: ADMIT Surgery; ATTEND Surgery
PROC: 0QSG04Z Reposition Right Tibia with Internal Fixation Device, Open Approach (ICD-10-PCS; principal; 2017-06-28)
PROC: 0QH636Z Insertion of Intramedullary Internal Fixation Device into Right Upper Femur, Percutaneous Approach (ICD-10-PCS; 2017-06-28)
DX: S72.21XA Displaced subtrochanteric fracture of right femur, initial encounter for closed fracture (principal); G89.11 Acute pain due to trauma; W17.89XA Other fall from one level to another, initial encounter; Y93.H3 Activity, building and construction; Y92.9 Unspecified place or not applicable; Y99.0 Civilian activity done for income or pay; S82.391A Other fracture of lower end of right tibia, initial encounter for closed fracture; M25.521 Pain in right elbow
CPT/HCPCS: 36415; 51702; 70450; 71260; 72125; 74177; 76001; 80048; 80053; 81003; 83690; 85007; 85025; 85027; 85610; 85730; 90471; 90682; 96361; 96374; 96375; C1713; C1769; G0008; G0390; G8978-GP-CM; G8979-GP-CL; G8987-GO-CK; G8988-GO-CI; J1100; J1170; J1650; J1885; J2001; J2250; J2405; J2704; J3010; Q2036